=== PATIENT | female | born 2005 | race Caucasian/White ===

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

== ENCOUNTER 2025-02-01 02:27 | Emergency (ER) | payer OTHER, SELFPAY ==
[2025-02-01 02:28] VITALS: BP 112/74; BMI 27.2
[2025-02-01 02:48] LABS: % Basophils 0.3 % (0-2); % Immature Granulocytes 0.6 % (0-0.5); % Lymphocytes 19.8 % (20.5-51.1); % Monocytes 3.9 % (1.7-9.3); % Neutrophils 74.4 % (42.2-75.2); Absolute Basophils 0.1 10^3/uL (0-0.2); Absolute Eosinophils 0.2 10^3/uL (0-0.7); Absolute Immature Granulocytes 0.1 10^3/uL (0-0.05); Absolute Lymphocytes 4.3 10^3/uL (1.2-3.4); Absolute Monocytes 0.8 10^3/uL (0.1-0.6); Absolute Neutrophils 16.2 10^3/uL (1.4-6.5); Hematocrit 36.9 % (37.0-47.0); Hemoglobin 12.4 g/dL (12.0-16.0); Mean Corp Hgb Conc. 33.6 g/dL (33.0-37.0); Mean Corpuscular Hgb 31.4 pg (27.0-31.0); Mean Corpuscular Volume 93.4 fL (81.0-99.0); Mean Platelet Volume 9.7 fL (7.4-10.4); Nucleated Red Blood Cells % 0 %; Platelet Count 332 10^3/uL (130-400); Red Blood Cell Count 3.95 10^6/uL (4.20-5.40); White Blood Cell Count 21.8 10^3/uL (4.8-10.8)
[2025-02-01 02:54] LABS: HCG, Serum Qualitative Screen Negative
--- NOTE | 2025-02-01 02:55 | ED.GENMED ---
History of Present Illness
General
Chief Complaint: Abdominal Symptoms
Source: patient
Exam Limitations: none
Time Seen by Provider: 02/01/25 02:30
Nursing documentation reviewed up to this point in time: agreed with
History of Present Illness
History of Present Illness:
Note:
CHIEF COMPLAINT(S)
Nausea and vomiting
HISTORY OF PRESENT ILLNESS
19-year-old female with a past medical history of asthma, tobacco use disorder, hyperlipidemia, anxiety, depression, bipolar disorder who presents emergency department today with concerns of nausea and vomiting after smoking her THC pen. Patient
reports that she smokes marijuana daily. Patient reports that she has a history of cannabinoid hyperemesis syndrome in the past and reports that after smoking her THC pen today, she had persistent nausea and vomiting. Patient reports that the
nausea and vomiting has largely subsided. She subsequently had 2 episodes of diarrhea. She notes crampy abdominal pain earlier but currently is abdominal pain-free. She denies any dizziness or lightheadedness. She denies any past history of
abdominal surgeries. Patient reports that she has had multiple episodes of cannabinoid hyperemesis syndrome in the past and has tried to quit smoking marijuana but reports that she struggles with this. She is upset because her parents took away
her marijuana. She denies any suicidal or homicidal ideation. She also reports that she uses a nicotine pen daily and feels as though she is having withdrawal symptoms is requesting a nicotine patch. Patient reports that she is so nauseated that
she called her parents however they were not picking up so she called EMS. EMS gave her a dose of Zofran and route.
ALLERGIES
No allergies
PAST MEDICAL HISTORY
Hyperlipidemia, asthma, tobacco use disorder, anxiety, bipolar disorder
PAST SURGICAL HISTORY
N/A
PHYSICAL EXAM
General: Patient is well appearing and in no acute distress; non-toxic
Skin: Warm and dry, no rashes or lesions
Head: Normocephalic, atraumatic
Eyes: Sclera non-icteric. EOMs intact.
Cardiac: Regular rate and rhythm, no murmurs
Peripheral Vascular: No lower extremity swelling or edema
Pulm: Normal respiratory effort, no wheezes, rales, rhonchi
Abdomen: No abdominal tenderness to palpation, abdomen soft, normoactive bowel sounds
Neuro: CN II-XII intact, no focal neurologic deficits.
Psychiatric: Appropriate mood and affect. No suicidal or homicidal ideation.
PLAN
Will give antiemetics and fluids, will check blood work
DIFFERENTIAL DIAGNOSIS
Differentials include gastroenteritis, cannabinoid hyperemesis syndrome, medication side effect
REVIEW OF PREVIOUS RECORDS
Reviewed previous ER physician documentation for cyclic vomiting syndrome
DISPOSITION/MDM
19-year-old female with a past medical history of asthma, tobacco use disorder, hyperlipidemia, anxiety, depression, bipolar disorder who presents emergency department today with concerns of nausea and vomiting after smoking her THC pen. She has a
hx of CHS in the past. Most of her symptoms have largely resolved by this point however she has persistent nausea. She was given repeat dose of Zofran and Compazine here as well as IV fluids which significantly improved her symptoms. She has no
abdominal pain. Her abdominal exam is reassuring. Suspect acute CHS. patient is able to tolerate oral intake upon discharge. Reviewed blood work with attending. Please see updated notes below. Discussed repeat blood work with PCP. Discussed
close return precautions. Patient stable for discharge.
UPDATES
4:45 am-- Upon my evaluation, patient is sleeping comfortably. She does admit that persistent nausea is awakening her from sleep. She does admit we will give dose of Zofran. Will repeat CBC considering elevated white count.
Repeat CBC shows decrease in her white blood cell count. Suspect this is reactive from persistent vomiting. Do not suspect acute abdomen as patient has no abdominal pain, no fever. Her hemoglobin did go down with repeat CBC to 9.9 however
believe this is dilutional as patient did receive a liter of fluids
Past History
Social History
Tobacco: Non-smoker
Alcohol: None
Drug: None
Review of Systems
Review of Systems
All Other Systems: ROS reviewed and negative except as documented in HPI and ROS
Phy Exam
Physical Exam
Physical Exam:
see hpi
Course
Orders/Labs/Results
Orders:
Orders
02/01/25 02:37
Test Result ONCE
02/01/25 02:39
Complete Blood Count/With Diff Urgent
Comprehensive Metabolic Panel Urgent
HCG, Serum Qualitative Screen Urgent
Lipase Urgent
Comment: ADD ON
02/01/25 02:53
0.9% Sodium Chloride 1000 ml [Nss] 1,000 ml IV BOLUS
Ondansetron Injectable [Zofran] 4 mg IV NOW STA
02/01/25 02:55
Add On- LAB Urgent
Tests Added?: lipase
02/01/25 03:12
Prochlorperazine [Compazine] 10 mg IV NOW STA
02/01/25 03:27
Nicotine [Nicoderm Transdermal] 7 mg TRANSDERM DAILY ONE
02/01/25 04:56
Ondansetron Injectable [Zofran] 4 mg IV NOW STA
02/01/25 05:03
Complete Blood Count/With Diff Urgent
02/01/25 05:17
0.9% Sodium Chloride 250 ml [Nss] 250 ml IV BOLUS
Abnormal Lab Results
02/01/25 02/01/25
02:39 05:03
WBC 21.8 H 10^3/uL 17.4 H 10^3/uL
(4.8-10.8) (4.8-10.8)
RBC 3.95 L 10^6/uL 3.16 L 10^6/uL
(4.20-5.40) (4.20-5.40)
Hgb 9.9 L D g/dL
(12.0-16.0)
Hct 36.9 L % 29.1 L %
(37.0-47.0) (37.0-47.0)
MCH 31.4 H pg 31.3 H pg
(27.0-31.0) (27.0-31.0)
Abs Immat Gran (auto) 0.1 H 10^3/uL 0.1 H 10^3/uL
(0-0.05) (0-0.05)
Absolute Neuts (auto) 16.2 H 10^3/uL 14.8 H 10^3/uL
(1.4-6.5) (1.4-6.5)
Absolute Lymphs (auto) 4.3 H 10^3/uL
(1.2-3.4)
Absolute Monos (auto) 0.8 H 10^3/uL 1.0 H 10^3/uL
(0.1-0.6) (0.1-0.6)
Immature Gran % 0.6 H %
(0-0.5)
Neutrophils % 85.0 H %
(42.2-75.2)
Lymphocytes % 19.8 L % 7.0 L %
(20.5-51.1) (20.5-51.1)
Glucose 102 H mg/dl
(70-99)
Lipase 430 H U/L
(23-300)
02/01/25 05:03
02/01/25 02:39
Vital Signs
Initial and Last Documented VS:
Initial Vital Signs
Temp Pulse Resp BP Pulse Ox
98.6 F 77 16 112/74 99
02/01/25 02:28 02/01/25 02:28 02/01/25 02:28 02/01/25 02:28 02/01/25 02:28
Last Documented Vital Signs
Temp Pulse Resp BP Pulse Ox
98.2 F 77 16 90/51 98
02/01/25 02:31 02/01/25 02:28 02/01/25 02:28 02/01/25 06:03 02/01/25 06:03
*Pulse Oximetry
SaO2: 99
Oxygen Mode of Delivery: Room air
*Critical Care Note
Total Time (30-74mins, 75-104mins- exclusive of procedures): Not Applicable
ED Attending Note
-
Portions of this chart may have been created with voice recognition software.� Occasional wrong word or��sound alike� substitutions may have occurred due to the inherent limitations of voice recognition software.
Discharge Plan
Departure
Patient Disposition: Home (Routine Discharge)
Date of Disposition: 02/01/25
Time of Disposition: 06:07
Patient with high blood pressure during this ER visit?: No
Condition: Good
Discharge Problem:
Cannabinoid hyperemesis syndrome
Instructions: Nausea and Vomiting, Adult (DC), Cannabis use disorder
Prescriptions:
New
ondansetron 4 mg tablet,disintegrating
4 mg PO Q6H PRN (Reason: nausea and vomiting) Qty: 8 0RF
No Action
ondansetron 8 mg tablet,disintegrating
8 mg PO TID PRN (Reason: nausea and vomiting) Qty: 30 0RF
hydroxyzine HCl 25 mg tablet
25 - 50 mg PO HS PRN (Reason: insomnia) Qty: 30 0RF
carbamazepine [Tegretol] 200 mg Tablet
200 mg PO DAILY
fluoxetine [Prozac] 20 mg Capsule
20 mg PO DAILY
lurasidone [Latuda] 40 mg Tablet
40 mg PO DAILY
Rx Instructions:
must administer with food (at least 350 calories)
ondansetron 4 mg tablet,disintegrating
4 mg PO TID 4 Days Qty: 12 0RF
Referrals:
UNKNOWN - PT DOES,NOT KNOW [Family Provider]
Activity Restrictions/Additional Instructions:
Zofran has been sent to your pharmacy. You can take 1 tablet every 6 hours as needed for nausea and vomiting.
Marijuana cessation and tobacco cessation is very important to your health. Please follow up with your primary care provider.
PLEASE RETURN TO EMERGENCY DEPARTMENT SHOULD YOU DEVELOP ANY ACUTE WORSENING OF YOUR SYMPTOMS, CHEST PAIN, SHORTNESS OF BREATH, DIZZINESS, INTRACTABLE NAUSEA VOMITING, INABILITY TO TOLERATE ORAL INTAKE, FEVERS OR CHILLS, ABDOMINAL PAIN, OR ANY OTHER
SIGNS OR SYMPTOMS WORRISOME TO YOU.
Interventions
Interventions:
*Risk Screen - Suicide Last Done: 02/01/25 02:28
*General Assessment Last Done: 02/01/25 02:28
*Neglect/Abuse Screening Last Done: 02/01/25 02:28
*ED- Fall Risk Assessment Last Done: 02/01/25 03:38
*ED COVID-19 Vaccine History Last Done: 02/01/25 03:38
*Nursing Disposition Last Done: 02/01/25 06:34
CP-Gypsry-Mhsyytvfsf Assessment Last Done: 02/01/25 02:40
Discharge Date and Time
Discharge Date/Time: 02/01/25 06:36
Print Language: ARMENIAN
[2025-02-01 03:01] LABS: ALT (SGPT) 14 U/L (0-35); AST (SGOT) 22 U/L (14-36); Albumin 4.8 g/dl (3.5-5.0); Alkaline Phosphatase 53 U/L (38-126); Blood Urea Nitrogen 15 mg/dl (7-17); Calcium 9.4 mg/dl (8.4-10.2); Carbon Dioxide 25 mmol/L (22-30); Chloride 107 mmol/L (98-107); Estimated Creatinine Clearance 85 ml/min; Glucose 102 mg/dl (70-99); Potassium 3.6 mmol/L (3.5-5.1); Sodium 142 mmol/L (135-145); Total Bilirubin 0.4 mg/dl (0.2-1.3); Total Protein 7.7 g/dl (6.3-8.2); eGFR > 60.00
[2025-02-01 03:08] LABS: Lipase 430 U/L (23-300)
[2025-02-01] MEDS: COMPAZINE 10 MG IV (03:18)
[2025-02-01] MEDS: NSS 1000 IV (03:23)
[2025-02-01] MEDS: NICODERM TRANSDERMAL 7 MG TRANSDERM (03:36)
[2025-02-01 04:00] VITALS: BP 102/61
[2025-02-01] MEDS: ZOFRAN 4 MG IV (05:06)
[2025-02-01 05:10] VITALS: BP 94/53
[2025-02-01 05:28] LABS: % Basophils 0.2 % (0-2); % Eosinophils 1.6 % (0-6); % Immature Granulocytes 0.5 % (0-0.5); % Monocytes 5.7 % (1.7-9.3); Absolute Eosinophils 0.3 10^3/uL (0-0.7); Absolute Immature Granulocytes 0.1 10^3/uL (0-0.05); Absolute Lymphocytes 1.2 10^3/uL (1.2-3.4); Absolute Neutrophils 14.8 10^3/uL (1.4-6.5); Hematocrit 29.1 % (37.0-47.0); Hemoglobin 9.9 g/dL (12.0-16.0); Mean Corpuscular Hgb 31.3 pg (27.0-31.0); Mean Corpuscular Volume 92.1 fL (81.0-99.0); Mean Platelet Volume 9.6 fL (7.4-10.4); Nucleated Red Blood Cells % 0 %; Platelet Count 235 10^3/uL (130-400); Red Blood Cell Count 3.16 10^6/uL (4.20-5.40); Red Cell Dist. Width 11.9 % (11.5-14.5); White Blood Cell Count 17.4 10^3/uL (4.8-10.8)
[2025-02-01] MEDS: NSS 250 IV (05:33)
[2025-02-01 06:03] VITALS: BP 90/51
== END 2025-02-01 06:36 | disposition home or self-care (01) ==
LOC: EMR 02:27
PROVIDERS: Physician Assistant; EMERGENCY PHYSICIAN Student in an Organized Health Care Education/Training Program
DX: R11.2 Nausea with vomiting, unspecified (principal); F12.90 Cannabis use, unspecified, uncomplicated; Z72.0 Tobacco use; E78.00 Pure hypercholesterolemia, unspecified; F31.9 Bipolar disorder, unspecified; F41.9 Anxiety disorder, unspecified; J45.909 Unspecified asthma, uncomplicated
CPT/HCPCS: 99283; 96374; 96375; 96376; 96361; 80053; 83690; 84703; 85025

== ENCOUNTER 2025-02-05 17:38 | Emergency (ER) | payer OTHER, SELFPAY ==
[2025-02-05 17:55] VITALS: BP 117/75
--- NOTE | 2025-02-05 20:17 | ED.GENMED ---
History of Present Illness
General
Chief Complaint: Crisis Evaluation
Source: patient
Exam Limitations: none
Time Seen by Provider: 02/05/25 18:21
Nursing documentation reviewed up to this point in time: agreed with
History of Present Illness
History of Present Illness:
19 yr female presents to the ER for evaluation. Patient as per crisis was 302 by mom for erratic behavior and depressed mood'.' Patient presents awake alert she is cooperative states that she has been having a very' rough week.' She reports she
was treated poorly at her job and therefore left her job and is concerned that she does not have money she does not drive. She does admit that she stated to her father she' did not want a be here anymore.' She tells me however she has no intention
of harming herself and was just angry when she said that.'
Crisis informed me however that patient threatened to overdose or jump out of a moving vehicle.
Past History
Social History
Tobacco: Non-smoker
Alcohol: None
Drug: None
Phy Exam
General Physical Exam
General Presentation: no apparent distress
General age: appears stated age
General Skin: warm and dry
General Habitus: normal
General Mental: alert
General Hydration: appears well hydrated
Cardiovascular Exam
Cardiovascular Exam: regular rate/rhythm, no murmur and normal peripheral pulses
Pulmonary Exam
Pulmonary Exam: lungs clear and no respiratory distress
Neurological Exam
Neurological Exam: alert and oriented x3
Musculoskeletal Exam
Musculoskeletal Exam: full ROM
Skin Exam
Skin Exam: normal color and warm/dry
Psychiatric Exam
Psychiatric Exam: agitated and anxious
Course
Orders/Labs/Results
Orders:
Orders
02/05/25 18:23
1:1 Observation - Suicide/ Violent Behavior As Directed
Crisis Consult Urgent
Reason for Consult: depression and passive suicidal ideation. no plan, no intent
02/05/25 22:30
Drug Screen, Urine [Urine Drug Abuse Screen] Urgent
HCG, Urine Qualitative Screen Urgent
Test Result ONCE
02/05/25 22:39
Lorazepam [Ativan] 1 mg PO NOW STA
Vital Signs
Initial and Last Documented VS:
Initial Vital Signs
Temp Pulse Resp BP Pulse Ox
98.2 F 111 18 117/75 98
02/05/25 17:55 02/05/25 17:55 02/05/25 17:55 02/05/25 17:55 02/05/25 17:55
Last Documented Vital Signs
Temp Pulse Resp BP Pulse Ox
98.2 F 86 18 109/72 98
02/05/25 17:55 02/05/25 22:11 02/05/25 22:11 02/05/25 22:11 02/05/25 22:11
Course Developer consulted with Physician
Course Developer consulted with physician?: Yes
Name of Physician Consulted: Harsh
MDM/Problems Addressed
Differential Diagnosis Includes:
not limited to suicidal ideation
MDM/Problems Addressed:
Patient is a 19-year-old female who was brought in on a 302 petition by mom for threatening to overdose or jump out of a moving vehicle. Patient presented awake alert became very angry agitated threatening after psych evaluation. 302 was upheld.
History of suicidal ideation and attempts in the past.
patient yelling very angry and agitated. Agrees to take oral dose ativan.
Patient excepted to [place].
*Pulse Oximetry
SaO2: 98
Oxygen Mode of Delivery: Room air
Patient hypoxic: no
*Critical Care Note
Total Time (30-74mins, 75-104mins- exclusive of procedures): Not Applicable
ED Attending Note
-
Portions of this chart may have been created with voice recognition software.� Occasional wrong word or��sound alike� substitutions may have occurred due to the inherent limitations of voice recognition software.
Discharge Plan
Departure
Patient Disposition: Psych Facility
Condition: Fair
Covid-19: Not Applicable
Discharge Problem:
Suicidal ideation
Prescriptions:
No Action
ondansetron 8 mg tablet,disintegrating
8 mg PO TID PRN (Reason: nausea and vomiting) Qty: 30 0RF
hydroxyzine HCl 25 mg tablet
25 - 50 mg PO HS PRN (Reason: insomnia) Qty: 30 0RF
carbamazepine [Tegretol] 200 mg Tablet
200 mg PO DAILY
fluoxetine [Prozac] 20 mg Capsule
20 mg PO DAILY
lurasidone [Latuda] 40 mg Tablet
40 mg PO DAILY
Rx Instructions:
must administer with food (at least 350 calories)
ondansetron 4 mg tablet,disintegrating
4 mg PO TID 4 Days Qty: 12 0RF
ondansetron 4 mg tablet,disintegrating
4 mg PO Q6H PRN (Reason: nausea and vomiting) Qty: 8 0RF
Referrals:
UNKNOWN - PT DOES,NOT KNOW [Family Provider]
Interventions
Interventions:
*Risk Screen - Suicide Last Done: 02/05/25 17:46
*General Assessment Last Done: 02/05/25 17:46
*Neglect/Abuse Screening Last Done: 02/05/25 17:46
*ED- Fall Risk Assessment Last Done: 02/05/25 17:46
*ED COVID-19 Vaccine History Last Done: 02/05/25 17:46
ED-Psychological Assessment Last Done: 02/05/25 17:46
Discharge Date and Time
Print Language: CANADIAN
[2025-02-05 22:11] VITALS: BP 109/72
[2025-02-05] MEDS: ATIVAN 1 MG PO (22:42)
[2025-02-05 23:18] LABS: HCG, Urine Qualitative Screen Negative
[2025-02-05] MEDS: ATIVAN 2 MG IM (23:20)
[2025-02-05 23:26] LABS: Amphetamines Negative (Negative); Barbiturates Negative (Negative); Benzodiazepines Negative (Negative); Buprenorphine Negative (Negative); Cocaine Negative (Negative); Marijuana Positive (Negative); Methadone Negative (Negative); Methamphetamines Negative (Negative); Opiates Negative (Negative); Phencyclidine Negative (Negative); Tricyclic Antidepressants Negative (Negative)
[2025-02-05] MEDS: ZYPREXA 10 MG IM (23:43)
--- NOTE | 2025-02-06 00:10 | ED.GENMED ---
History of Present Illness
General
Chief Complaint: Crisis Evaluation
Source: patient
Time Seen by Provider: 02/05/25 18:21
History of Present Illness
History of Present Illness:
Patient is a 19-year-old female who presents to the ER for 302 evaluation. Mother petitioned a 302 for suicidal thoughts. Patient reportedly stated she was going either overdose or jump in front of a moving vehicle. Patient tells me she was very
angry and said he thinks because she has a lot going on this week. She reports she does not feel suicidal now. She has no physical complaints.
Past History
Social History
Tobacco: Non-smoker
Alcohol: None
Drug: None
Phy Exam
General Physical Exam
General Presentation: no apparent distress
General age: appears stated age
General Skin: warm
General Habitus: normal
General Mental: alert
General Hydration: appears well hydrated
Cardiovascular Exam
Cardiovascular Exam: regular rate/rhythm and normal peripheral pulses
Pulmonary Exam
Pulmonary Exam: lungs clear and no respiratory distress
Neurological Exam
Neurological Exam: alert and oriented x3
Musculoskeletal Exam
Musculoskeletal Exam: full ROM
Skin Exam
Skin Exam: normal color and warm/dry
Psychiatric Exam
Psychiatric Exam: normal mood/affect
Course
Orders/Labs/Results
Orders:
Orders
02/05/25 18:23
1:1 Observation - Suicide/ Violent Behavior As Directed
Crisis Consult Urgent
Reason for Consult: depression and passive suicidal ideation. no plan, no intent
02/05/25 22:30
Test Result ONCE
02/05/25 22:39
Lorazepam [Ativan] 1 mg PO NOW STA
02/05/25 23:07
Drug Screen, Urine [Urine Drug Abuse Screen] Urgent
Date Specimen was Collected: 02/05/25
Time Specimen was Collected: 22:51
HCG, Urine Qualitative Screen Urgent
Date Specimen was Collected: 02/05/25
Time Specimen was Collected: 22:51
02/05/25 23:14
Lorazepam [Ativan] 2 mg IM NOW STA
Olanzapine [Zyprexa] 10 mg IM NOW STA
Abnormal Lab Results
02/05/25
23:07
U Marijuana (THC) Screen Positive H
(Negative)
Vital Signs
Initial and Last Documented VS:
Initial Vital Signs
Temp Pulse Resp BP Pulse Ox
98.2 F 111 18 117/75 98
02/05/25 17:55 02/05/25 17:55 02/05/25 17:55 02/05/25 17:55 02/05/25 17:55
Last Documented Vital Signs
Temp Pulse Resp BP Pulse Ox
98.2 F 86 18 109/72 98
02/05/25 17:55 02/05/25 22:11 02/05/25 22:11 02/05/25 22:11 02/06/25 00:13
MDM/Problems Addressed
Differential Diagnosis Includes:
Not limited to suicidal ideation
MDM/Problems Addressed:
Patient is a 19-year-old female who presented with suicide threat, 302 was initiated by mom and upheld by crisis. Patient became very agitated yelling and screaming here in the ER and did require Zyprexa and Ativan IM. Patient was evaluated by
crisis and has a bed at [facility]. UDS positive for marijuana.
Chronic conditions affecting care:
Bipolar disorder suicidal attempt in the past anxiety depression
*Pulse Oximetry
SaO2: 98
Oxygen Mode of Delivery: Room air
Patient hypoxic: no
*Critical Care Note
Total Time (30-74mins, 75-104mins- exclusive of procedures): Not Applicable
ED Attending Note
-
Portions of this chart may have been created with voice recognition software.� Occasional wrong word or��sound alike� substitutions may have occurred due to the inherent limitations of voice recognition software.
Discharge Plan
Departure
Patient Disposition: Psych Facility
Condition: Fair
Covid-19: Not Applicable
Discharge Problem:
Suicidal ideation
Prescriptions:
No Action
ondansetron 8 mg tablet,disintegrating
8 mg PO TID PRN (Reason: nausea and vomiting) Qty: 30 0RF
hydroxyzine HCl 25 mg tablet
25 - 50 mg PO HS PRN (Reason: insomnia) Qty: 30 0RF
carbamazepine [Tegretol] 200 mg Tablet
200 mg PO DAILY
fluoxetine [Prozac] 20 mg Capsule
20 mg PO DAILY
lurasidone [Latuda] 40 mg Tablet
40 mg PO DAILY
Rx Instructions:
must administer with food (at least 350 calories)
ondansetron 4 mg tablet,disintegrating
4 mg PO TID 4 Days Qty: 12 0RF
ondansetron 4 mg tablet,disintegrating
4 mg PO Q6H PRN (Reason: nausea and vomiting) Qty: 8 0RF
Referrals:
UNKNOWN - PT DOES,NOT KNOW [Family Provider]
Interventions
Interventions:
*Risk Screen - Suicide Last Done: 02/05/25 17:46
*General Assessment Last Done: 02/05/25 17:46
*Neglect/Abuse Screening Last Done: 02/05/25 17:46
*ED- Fall Risk Assessment Last Done: 02/05/25 17:46
*ED COVID-19 Vaccine History Last Done: 02/05/25 17:46
ED-Psychological Assessment Last Done: 02/05/25 17:46
Discharge Date and Time
Print Language: BENGALI
[2025-02-06 09:10] VITALS: BP 120/81; BMI 21.0
== END 2025-02-06 14:02 ==
LOC: EMR 17:38
PROVIDERS: Nurse Practitioner; EMERGENCY PHYSICIAN Emergency Medicine
DX: R45.851 Suicidal ideations (principal); R45.1 Restlessness and agitation; F32.A Depression, unspecified; J45.909 Unspecified asthma, uncomplicated; F31.9 Bipolar disorder, unspecified; F41.9 Anxiety disorder, unspecified; F17.200 Nicotine dependence, unspecified, uncomplicated; Z91.51 Personal history of suicidal behavior; Z86.16 Personal history of COVID-19
CPT/HCPCS: 99285; 96372 ×2; 80306; 81025; J2358

== ENCOUNTER 2025-03-01 09:11 | Emergency (ER) | payer OTHER, SELFPAY ==
[2025-03-01] VITALS (7 sets, daily range): BP systolic 105–140; BP diastolic 60–88
--- NOTE | 2025-03-01 10:53 | ED.GENMED ---
History of Present Illness
General
Chief Complaint: Chest Problem
Source: patient and family
Exam Limitations: none
Time Seen by Provider: 03/01/25 09:19
Nursing documentation reviewed up to this point in time: agreed with
History of Present Illness
History of Present Illness:
Note:
CHIEF COMPLAINT(S)
Difficulty breathing and rib pain.
HISTORY OF PRESENT ILLNESS
The patient is a 19-year-old female who presents with difficulty in breathing and rib pain. She reports that the symptoms began three days ago with a sensation of being unable to breathe deeply and experiencing shallow breathing, which has made her
feel lightheaded. She describes the pain as shooting under her ribs and sometimes extending up to her neck. The pain is exacerbated by breathing, characterized by the patient as a 'straining feeling' under her ribs. She also notes that the pain
worsens when she lies down.
She visited urgent care yesterday, where a pulmonary embolism was considered, but no definitive conclusions were made. The patient denies any previous similar episodes and is concerned about her symptoms. Eating does not appear to worsen her
symptoms, and she denies any significant pain associated with eating. She has not experienced any relief with ibuprofen, although she has been using cannabis, which provides partial relief.
The patients tender points were identified bilaterally on the eighth rib, both anteriorly and posteriorly. She denies any respiratory distress and reports no severe worsening of her symptoms except for the discomfort associated with breathing.
MEDICATIONS
[place], Lamotrigine, Lurasidone.
SOCIAL HISTORY
The patient reports smoking cannabis using cartridges and other forms.
PHYSICAL EXAM
- Respiratory: No respiratory distress noted. Tenderness at the eighth rib, anteriorly and posteriorly, bilaterally.
- Cardiovascular: Regular rhythm, S1 and S2 heart sounds are present with no murmurs.
- Gastrointestinal: Abdomen is soft, non-tender, and non-distended.
- Musculoskeletal: Tenderness at the eighth rib bilaterally.
- Extremities: No edema noted. Negative Homans sign.
- Nursing notes reviewed and vital signs reviewed.
PLAN
1. Conduct screening tests for blood clots, including a D-dimer test. If elevated, proceed with a CT scan.
2. Perform a chest X-ray.
3. Check liver function tests to rule out any hepatic issues.
4. The patient is informed about the necessity of these evaluations to ensure a thorough assessment.
DIFFERENTIAL DIAGNOSIS
The Differential Diagnosis includes, in no particular order and is not limited to:
1. Pulmonary embolism
2. Costochondritis
3. Musculoskeletal strain (rib strain)
4. Pleurisy
5. Pneumothorax
6. Anxiety-related hyperventilation syndrome
7. Gastroesophageal reflux disease (GERD)
8. Cardiac causes like pericarditis
9. Liver or gallbladder pathology
10. Pneumonia or other respiratory infections
EKG
My independent EKG interpretation is:
- Time of EKG: [Not Provided]
- Rhythm: Normal sinus rhythm
- Heart rate: 94 bpm
- MD interval: Normal
- QRS duration: Normal
- QT interval: Normal
- [place]: [Not Provided]
- Abnormalities: No ischemia; normal EKG
CARE-UPDATE
03/01/25 - 14:22
CT scan negative for pulmonary embolism; lungs are normal. Patient stable for discharge. Will continue ibuprofen. Encourage patient to discontinue cannabis use.
Disposition:
SUMMARY OF ENCOUNTER
The patient, a 19-year-old female, presented to the emergency department with difficulty breathing and rib pain that began three days ago. She described a sensation of being unable to breathe deeply with shooting pain under her ribs radiating to her
neck. The pain was aggravated by breathing and lying down, but eating did not affect her symptoms. A pulmonary embolism was considered at urgent care, but no definitive conclusions were reached. She was evaluated, and tests were conducted, including
a CT scan which returned negative for pulmonary embolism. Physical exam revealed tenderness at the eighth rib bilaterally without respiratory distress. She was stable for discharge with continued use of ibuprofen and encouragement to discontinue
cannabis use.
DISPOSITION
Discharge.
ASSESSMENT
The primary assessment is a right rib strain, given the tender points and nature of the pain, in the context of recent cannabis use potentially leading to coughing or straining.
PLAN
1. Continue with ibuprofen for pain management.
2. Encourage discontinuation of cannabis use for better respiratory health.
3. No further imaging needed at this time as the CT scan was negative.
INDEPENDENT REVIEW OF LABS AND INTERPRETATION OF TESTS
My independent EKG interpretation is normal sinus rhythm with a heart rate of 94 bpm, normal MD interval, normal QRS duration, and QT interval without ischemia.
My independent CT scan interpretation is negative for pulmonary embolism; lungs are normal.
PATIENT EDUCATION AND COUNSELING
The patient was informed about the diagnosis of rib strain and educated on the importance of discontinuing cannabis use to alleviate respiratory issues. Emphasis was placed on pain management strategies and signs to watch for that may require
further medical attention.
MEDICATION RECONCILIATION
Ibuprofen for pain management.
MEDICAL DECISION MAKING
-Complexity of Data Reviewed: Chronic conditions affecting care including the history of cannabis use potentially contributing to respiratory strain. Differential diagnoses considered: pulmonary embolism, costochondritis, musculoskeletal strain (rib
strain), pleurisy, pneumothorax, anxiety-related hyperventilation syndrome, gastroesophageal reflux disease (GERD), cardiac causes like pericarditis, liver or gallbladder pathology, pneumonia or other respiratory infections.
-Data:
Category 1:
The patient underwent a CT scan which was negative for pulmonary embolism. An EKG was interpreted as normal.
-Risk:
Consideration of Admission/Observation: Escalation of care including admission/observation was considered given the complexity and risk of the patients presenting complaint, exam findings, and/or their underlying comorbidities. However, ultimately I
feel the patient is safe for outpatient management with close follow up. Reasoning: Work-up reassuring, does not reveal any acute life/organ-threatening processes, patients symptoms well-controlled upon reevaluation, examination is reassuring,
vitals are stable, patient agreeable with discharge, reliable for follow-up.
DIAGNOSIS
Rib strain, unspecified (ICD-10: S29.8XXA)
Past History
Social History
Tobacco: Non-smoker
Alcohol: None
Drug: None
Phy Exam
Physical Exam
Physical Exam:
.
Course
Orders/Labs/Results
Orders:
Orders
03/01/25 09:20
EKG [Electrocardiogram (*1)] Urgent
Reason for Study: Chest Pain
EKG- Treatment ONCE
03/01/25 10:46
Cardiac Monitoring- Treatment ONCE
IV Insert/Care/Rem.- Treatment PRN
CR Chest - 2 Views Urgent
Comment:
Reason For Exam: right side chest/rib pain
Pulse Ox/cont/shift [RESP] Stat
Quantity: 1
03/01/25 11:24
Complete Blood Count/With Diff Urgent
Comprehensive Metabolic Panel Urgent
D-Dimer Urgent
HCG, Serum Qualitative Screen Urgent
Lipase Urgent
Troponin I Urgent
03/01/25 12:06
Add On- LAB Urgent
Tests Added?: hcg serum qual
03/01/25 12:22
CT Chest PE Study Urgent
Comment:
Reason For Exam: short of breath, ddimer elevated
Abnormal Lab Results
03/01/25
11:24
WBC 12.5 H 10^3/uL
(4.8-10.8)
RBC 3.71 L 10^6/uL
(4.20-5.40)
Hgb 11.4 L g/dL
(12.0-16.0)
Hct 34.6 L %
(37.0-47.0)
MCHC 32.9 L g/dL
(33.0-37.0)
Abs Immat Gran (auto) 0.1 H 10^3/uL
(0-0.05)
Absolute Neuts (auto) 8.3 H 10^3/uL
(1.4-6.5)
Absolute Monos (auto) 0.9 H 10^3/uL
(0.1-0.6)
D-Dimer 0.92 H ug/mlFEU
(0.00-0.50)
03/01/25 11:24
03/01/25 11:24
Vital Signs
Initial and Last Documented VS:
Initial Vital Signs
Temp Pulse Resp BP Pulse Ox
99.2 F 114 16 140/88 98
03/01/25 09:15 03/01/25 09:15 03/01/25 09:15 03/01/25 09:15 03/01/25 09:15
Last Documented Vital Signs
Temp Pulse Resp BP Pulse Ox
99.2 F 83 17 109/66 97
03/01/25 09:15 03/01/25 13:00 03/01/25 13:00 03/01/25 13:00 03/01/25 13:00
*Pulse Oximetry
SaO2: 98
Patient hypoxic: no
*Critical Care Note
Total Time (30-74mins, 75-104mins- exclusive of procedures): Not Applicable
ED Attending Note
-
Portions of this chart may have been created with voice recognition software.� Occasional wrong word or��sound alike� substitutions may have occurred due to the inherent limitations of voice recognition software.
Discharge Plan
Departure
Patient Disposition: Home (Routine Discharge)
Date of Disposition: 03/01/25
Time of Disposition: 14:24
Patient with high blood pressure during this ER visit?: No
Condition: Good
Discharge Problem:
Chest wall muscle strain
Instructions: Chest pain
Prescriptions:
No Action
No Current Medications
0
Referrals:
Neo Gross MD [Family Provider, Internal Medicine] - Call in 1-3 days for appt
Discharge Date and Time
Print Language: SWEDISH
[2025-03-01 11:31] LABS: Hematocrit 34.6 % (37.0-47.0); Hemoglobin 11.4 g/dL (12.0-16.0); Mean Corp Hgb Conc. 32.9 g/dL (33.0-37.0); Mean Corpuscular Volume 93.3 fL (81.0-99.0); Nucleated Red Blood Cells % 0 %; Platelet Count 327 10^3/uL (130-400); Red Cell Dist. Width 12.6 % (11.5-14.5)
[2025-03-01 11:45] LABS: D-Dimer 0.92 ug/mlFEU (0.00-0.50)
[2025-03-01 11:55] LABS: ALT (SGPT) 16 U/L (0-35); AST (SGOT) 20 U/L (14-36); Albumin 4.5 g/dl (3.5-5.0); Alkaline Phosphatase 59 U/L (38-126); Blood Urea Nitrogen 13 mg/dl (7-17); Calcium 10.0 mg/dl (8.4-10.2); Carbon Dioxide 28 mmol/L (22-30); Chloride 103 mmol/L (98-107); Glucose 90 mg/dl (70-99); Lipase 99 U/L (23-300); Potassium 4.3 mmol/L (3.5-5.1); Sodium 136 mmol/L (135-145); Total Protein 8.0 g/dl (6.3-8.2); eGFR > 60.00
[2025-03-01 12:05] LABS: Troponin I < 0.012 ng/ml
[2025-03-01 12:19] LABS: HCG, Serum Qualitative Screen Negative
== END 2025-03-01 14:50 | disposition home or self-care (01) ==
LOC: EMR 09:11
PROVIDERS: EMERGENCY PHYSICIAN Emergency Medicine; FAMILY PHYSICIAN Internal Medicine
DX: S29.011A Strain of muscle and tendon of front wall of thorax, initial encounter (principal); X58.XXXA Exposure to other specified factors, initial encounter
CPT/HCPCS: 99285; 71046; 71275; 80053; 83690; 84484; 84703; 85025; 85379; 93005; Q9967

== ENCOUNTER 2025-03-04 20:19 | Emergency (ER) | payer OTHER, SELFPAY ==
[2025-03-04 20:21] VITALS: BP 121/70
[2025-03-04 20:39] LABS: Hematocrit 34.2 % (37.0-47.0); Hemoglobin 11.8 g/dL (12.0-16.0); Mean Corp Hgb Conc. 34.5 g/dL (33.0-37.0); Mean Corpuscular Volume 90.2 fL (81.0-99.0); Nucleated Red Blood Cells % 0 %; Platelet Count 435 10^3/uL (130-400); Red Cell Dist. Width 12.3 % (11.5-14.5)
[2025-03-04 20:57] LABS: HCG, Serum Qualitative Screen Negative
[2025-03-04 21:07] LABS: ALT (SGPT) 16 U/L (0-35); AST (SGOT) 21 U/L (14-36); Albumin 5.0 g/dl (3.5-5.0); Alkaline Phosphatase 74 U/L (38-126); Blood Urea Nitrogen 12 mg/dl (7-17); Calcium 10.4 mg/dl (8.4-10.2); Carbon Dioxide 22 mmol/L (22-30); Chloride 106 mmol/L (98-107); Glucose 104 mg/dl (70-99); Potassium 4.0 mmol/L (3.5-5.1); Sodium 138 mmol/L (135-145); Total Protein 8.7 g/dl (6.3-8.2); eGFR > 60.00
[2025-03-04 21:11] VITALS: BMI 28.0
[2025-03-04] MEDS: ZOFRAN ODT (ORALLY DISINTEGRATING) 4 MG PO ×2 (21:26→21:55)
[2025-03-04] MEDS: VISTARIL 25 MG IM (21:28)
--- NOTE | 2025-03-04 21:30 | ED.GENMED ---
History of Present Illness
General
Chief Complaint: Anxiety
Time Seen by Provider: 03/04/25 21:10
History of Present Illness
History of Present Illness:
19-year-old female with history of anxiety, depression, bipolar disorder, and cannabinoid hyperemesis presents the emergency department via EMS due to intractable vomiting. Admits to cannabis use yesterday. Denies any pain at this time. Her
speech pattern is rambling and tangential
Past History
Social History
Tobacco: Non-smoker
Alcohol: None
Drug: None
Review of Systems
Review of Systems
Allergies reviewed?: Yes
All Other Systems: ROS reviewed and negative except as documented in HPI and ROS
Phy Exam
Physical Exam
Physical Exam:
GEN: Well appearing, NAD, WDWN
HEENT: Oral mucosa moist, no scleral icterus
Cardiac: Regular rate
Lung: No respiratory distress, no tachypnea
MSK: No gross deformity or injuries
Skin: Good color, no pallor or jaundice, no rashes
Neuro: AO x3, moves all extremities freely
Psych: Anxious, tangential and rambling speech, difficult to redirect
Course
Orders/Labs/Results
Orders:
Orders
03/04/25 20:24
Test Result ONCE
03/04/25 20:29
CMP [Comprehensive Metabolic Panel] Urgent
Complete Blood Count/With Diff Urgent
HCG, Serum Qualitative Screen Urgent
03/04/25 21:18
HydrOXYzine [Vistaril] 25 mg IM NOW STA
Ondansetron Orally Disint [Zofran Odt (Orally Disintegrating)] 4 mg PO NOW STA
03/04/25 21:50
Ondansetron Orally Disint [Zofran Odt (Orally Disintegrating)] 4 mg PO NOW STA
Abnormal Lab Results
03/04/25
20:29
WBC 13.9 H 10^3/uL
(4.8-10.8)
RBC 3.79 L 10^6/uL
(4.20-5.40)
Hgb 11.8 L g/dL
(12.0-16.0)
Hct 34.2 L %
(37.0-47.0)
MCH 31.1 H pg
(27.0-31.0)
Plt Count 435 H D 10^3/uL
(130-400)
Absolute Neuts (auto) 10.1 H 10^3/uL
(1.4-6.5)
Glucose 104 H mg/dl
(70-99)
Calcium 10.4 H mg/dl
(8.4-10.2)
Total Protein 8.7 H g/dl
(6.3-8.2)
03/04/25 20:29
03/04/25 20:29
Vital Signs
Initial and Last Documented VS:
Initial Vital Signs
Temp Pulse Resp BP Pulse Ox
98.3 F 81 22 121/70 99
03/04/25 20:21 03/04/25 20:21 03/04/25 20:21 03/04/25 20:21 03/04/25 20:21
Last Documented Vital Signs
Temp Pulse Resp BP Pulse Ox
98.3 F 81 22 121/70 99
03/04/25 20:21 03/04/25 20:21 03/04/25 20:21 03/04/25 20:21 03/04/25 21:31
MDM/Problems Addressed
MDM/Problems Addressed:
Patient was not observed to vomit at all in the ED. She was profoundly anxious and quite antsy to be discharged. Given antiemetics and was discharged in the care of her significant other. She has an unremarkable exam and unremarkable labs
*Pulse Oximetry
SaO2: 99
Oxygen Mode of Delivery: Room air
Patient hypoxic: no
*Critical Care Note
Total Time (30-74mins, 75-104mins- exclusive of procedures): Not Applicable
ED Attending Note
-
Portions of this chart may have been created with voice recognition software.� Occasional wrong word or��sound alike� substitutions may have occurred due to the inherent limitations of voice recognition software.
Discharge Plan
Departure
Patient Disposition: Home (Routine Discharge)
Date of Disposition: 03/04/25
Time of Disposition: 21:50
Patient with high blood pressure during this ER visit?: No
Discharge Problem:
Cannabinoid hyperemesis syndrome
Instructions: Anxiety, Adult (DC)
Prescriptions:
No Action
No Current Medications
0
Referrals:
Neo Gross MD [Family Provider, Internal Medicine]
Interventions
Interventions:
*Risk Screen - Suicide Last Done: 03/04/25 20:21
*General Assessment Last Done: 03/04/25 21:11
*Neglect/Abuse Screening Last Done: 03/04/25 20:21
*ED- Fall Risk Assessment Last Done: 03/04/25 21:11
*ED COVID-19 Vaccine History Last Done: 03/04/25 21:11
*Nursing Disposition Last Done: 03/04/25 21:56
ED-Psychological Assessment Last Done: 03/04/25 21:12
Discharge Date and Time
Discharge Date/Time: 03/04/25 21:57
Print Language: BAHRAINI
== END 2025-03-04 21:57 | disposition home or self-care (01) ==
LOC: EMR 20:19
PROVIDERS: EMERGENCY PHYSICIAN Emergency Medicine; FAMILY PHYSICIAN Internal Medicine
DX: R11.10 Vomiting, unspecified (principal); F12.90 Cannabis use, unspecified, uncomplicated; F31.9 Bipolar disorder, unspecified; F41.9 Anxiety disorder, unspecified; F32.A Depression, unspecified
CPT/HCPCS: 99284; 96372; 80053; 84703; 85025